=== PATIENT | male | born 1975 | race Hispanic/Latino ===

== ENCOUNTER → 2018-03-09 | Outpatient (CLI) | payer OTHER | END | disposition home or self-care (01) | LOC: SHCH 07:50 | PROVIDERS: ATTEND Internal Medicine Cardiovascular Disease | DX: I22.0 Subsequent ST elevation (STEMI) myocardial infarction of anterior wall (principal); I22.1 Subsequent ST elevation (STEMI) myocardial infarction of inferior wall; I50.23 Acute on chronic systolic (congestive) heart failure; R00.0 Tachycardia, unspecified | CPT/HCPCS: 78481; A9512 ==